=== PATIENT | male | born 1995 | race Hispanic/Latino ===

== ENCOUNTER → 2017-11-13 | Outpatient (CLI) | payer OTHER | LOC: M RAD 13:15 | DX: J32.4 Chronic pansinusitis (principal) ==

== ENCOUNTER → 2017-12-04 | Outpatient (CLI) | payer OTHER | LOC: M RAD 14:17 | DX: J33.9 Nasal polyp, unspecified (principal) | CPT/HCPCS: 70486 ==

== ENCOUNTER 2017-12-12 09:24 | Day surgery (SDC) | payer OTHER ==
[2017-12-12] MEDS ORDERED: MIDAZOLAM INJ 2 MG/2 ML VIAL (J2250) As Ordered (09:35)
[2017-12-12] MEDS ORDERED: fentaNYL 250 MCG/5 ML INJECTION (J3010) As Ordered (09:36)
[2017-12-12] MEDS ORDERED: ROCURONIUM BROMIDE 50 MG/5 ML VIAL As Ordered (09:36)
[2017-12-12] MEDS ORDERED: PROPOFOL 200 MG/20 ML VIAL As Ordered ×2 (09:37)
[2017-12-12] MEDS ORDERED: LIDOCAINE 2% INJ 100 MG/5 ML SDV (FOR ANES.) As Ordered (09:38)
[2017-12-12] MEDS: LIDOCAINE W/EPINEPHRINE 1% 20ML VIAL As Ordered (10:23)
[2017-12-12] MEDS: EPINEPHrine 1MG/ML INJ 30ML MD-VIAL As Ordered (11:25)
[2017-12-12] MEDS: METHYLENE BLUE 0.5% (5MG/ML) 10 ML AMP (PROVAYBLUE)(Q9968 PER 1MG) As Ordered (11:25)
[2017-12-12] MEDS ORDERED: GLYCOPYRROLATE INJ 0.2 MG/ML 2 ML VIAL As Ordered ×2 (11:28→13:52)
[2017-12-12] MEDS ORDERED: dexameTHASONE 4 MG/ML 1ML VIAL (J1100) As Ordered ×3 (11:30)
[2017-12-12] MEDS ORDERED: fentaNYL 100 MCG/2 ML INJECTION (J3010) As Ordered ×2 (13:19→13:56)
[2017-12-12] MEDS ORDERED: NEOSTIGMINE 10 MG/10 ML VIAL (J2710) As Ordered (13:52)
[2017-12-12] MEDS ORDERED: HYDROmorphone HCL 2 MG/ML 1ML VIAL (J1170) As Ordered (13:54)
[2017-12-12] MEDS ORDERED: METOCLOPRAMIDE INJ 10MG/2ML VIAL (J2765) IV (14:30)
[2017-12-12] MEDS ORDERED: ONDANSETRON 4MG/2ML VIAL (J2405) IV (14:30)
[2017-12-12] MEDS ORDERED: fentaNYL 100 MCG/2 ML INJECTION (J3010) IV (14:30)
[2017-12-12] MEDS ORDERED: ACETAMINOPH W/CODEINE #3 TAB UD PO (14:30)
[2017-12-12] MEDS ORDERED: LR 1,000 ML IV ×2 (14:30)
[2017-12-12] MEDS: PERCOCET 5MG/325MG TAB PO ×2 (14:57→15:44)
[2017-12-12] MEDS ORDERED: MEPERIDINE INJ 25 MG/ML VIAL (J2175) As Ordered (15:08)
[2017-12-12] MEDS: MEPERIDINE INJ 25 MG/ML VIAL (J2175) IV (15:10)
[2017-12-12] MEDS ORDERED: PERCOCET 5MG/325MG TAB As Ordered (15:42)
== END 2017-12-12 17:10 | disposition home or self-care (01) ==
LOC: M SDC 09:24
DX: J32.9 Chronic sinusitis, unspecified (principal); J33.9 Nasal polyp, unspecified
CPT/HCPCS: 31267

== ENCOUNTER 2019-09-28 17:14 | Emergency (ER) | payer OTHER ==
[~2019-09-28] VITALS: Ht 180.3 cm; Wt 106.0 kg
[2019-09-28] MEDS ORDERED: KEFL500C17 PO (17:51)
[2019-09-28] MEDS ORDERED: CEPHALEXIN 500 MG CAP PO ONE (18:00)
[2019-09-28] MEDS ORDERED: IBUPROFEN 800 MG TAB PO ONE (18:15)
[2019-09-28] MEDS ORDERED: ACETAMINOPHEN 325 MG TAB PO ONE (18:15)
[2019-09-28 18:18] VITALS: BP 126/66
--- NOTE | 2019-09-29 10:46 | REP ---
REASON FOR EXAM: Trauma. Here is a fracture involving the tuft of the distal phalanx of the first digit. There are no additional fractures. IMPRESSION: Tuft fracture first digit. Electronically Signed by Joseph Mathur DO 09/29/2019 05:21 P
== END 2019-09-28 18:20 | disposition home or self-care (01) ==
LOC: M ED 17:14
DX: S62.522A Displaced fracture of distal phalanx of left thumb, initial encounter for closed fracture (principal); W23.1XXA Caught, crushed, jammed, or pinched between stationary objects, initial encounter; Y93.B3 Activity, free weights; Y92.39 Other specified sports and athletic area as the place of occurrence of the external cause; Y99.9 Unspecified external cause status